=== PATIENT | male | born 1980 | race Caucasian/White ===

== ENCOUNTER 2021-03-18 10:58 | Emergency (ER) | payer OTHER, SELFPAY ==
[2021-03-18 11:08] VITALS: BP 133/77; PULSE 117; RESP 20; TEMP 36.1; O2SAT 99
--- NOTE | 2021-03-18 11:30 | ED.SKABFB ---
HPI - Skin/Abscess/Foreign Bdy General Chief complaint: Skin/Abscess/Foreign Body Stated complaint: pos skin abcess Source: patient and RN notes reviewed Limitations: no limitations History of Present Illness HPI narrative: The patient, previously mostly healthy, presents with skin eruption. Patient states he has a least a week long history of left ,proximal inner thigh abscess. Symptoms are mild to moderate, worse with activity, better with rest and may have worsened in the last couple days after recent float trip. No fever, streaking, scrotal/perineal involvement; there is scant discharge and mild fluctuance Related Data Allergies Allergy/AdvReac Type Severity Reaction Status Date / Time No Known Allergies Allergy Unknown Unverified 03/18/21 11:26 Review of Systems Review of Systems: Narrative: General/Constitutional: No weight loss,fever Eyes: N0: Redness,discharge Ears/Nose/Throat: No: Epistaxis,ear discharge Respiratory: Denies: Hemoptysis Gastrointestinal: No Vomiting, Bleeding-rectal Skin: REPORTS lumps, eruption Neurologic: No Focal Weakness,Sz Hematologic: Denies: Petechiae/Purpura Psychiatric: No: Suicida ideationl All Other Systems: Reviewed and Negative PMFSH Comments At time of signature, agree with nursing past medical, surgical, social and family history. There is no relevant family history pertinent to the presenting complaint Exam Narrative: Exam Narrative: General Appearance: Well nourished, Cooperative, Normocephalic Eye: PERRLA, Conjunctiva clear Ear: External ear normal Nose: Normal nose, Nare clear Mouth/Throat: Normal appearing Neck Exam: Supple Respiratory: Airway patent, No respiratory distress Musculoskeletal: Moves all extremities, Non tender Skin: Warm, Dry; larger, hand-sized area of redness and inflammation centered on a half dollar size abscess of the left proximal inner thigh Neurological: A&O x3, Normal affect Course Vital Signs Vital signs: Vital Signs Temperature 96.9 F L 03/18/21 11:08 Pulse Rate 117 H 03/18/21 11:08 Respiratory Rate 03/18/21 11:08 Blood Pressure 133/77 03/18/21 11:08 Pulse Oximetry 99 03/18/21 11:08 Temperature 96.9 F L 03/18/21 11:08 Pulse Rate 117 H 03/18/21 11:08 Respiratory Rate 03/18/21 11:08 Blood Pressure 133/77 03/18/21 11:08 Pulse Oximetry 99 03/18/21 11:08 Procedures Abscess I/D lower extremity: Date of Incision: 03/18/21 Side (if applicable): left Local Anesthetic: other anesthetic (EMLA) Technique: incised with #11 blade Irrigation: No Packing used?: none I&D Results: Blood Discharge Plan Discharge Clinical Impression: Abscess of skin or subcutaneous tissue Qualifiers: Site of cutaneous abscess: extremity Site of cutaneous abscess of extremity: lower extremity Laterality: left Qualified Code(s): L02.416 - Cutaneous abscess of left lower limb Patient Disposition: Home, Self-Care Condition: Stable Instructions: Antibiotic Form, Abscess (ED) Additional Instructions: Take clindamycin with food, antiacid and/or probiotic; stop if diarrhea occurs Go to hospital if worsens Prescriptions: New clindamycin HCl 300 mg capsule 300 mg PO TID Qty: 21 RF: 0 mupirocin 2 % ointment 1 applic TOPICAL TID Qty: 30 RF: 0 Follow-up/Referrals: UNKNOWN,DOCTOR [Primary Care Provider] -
[2021-03-18] MEDS: LIDOCAINE/PRILOCAINE CREAM 2.5-2.5% TUBE 1 EACH TOPICAL (11:39)
[2021-03-18] MEDS: cefTRIAXone 1 GM VIAL 0.5 GM IM (12:19)
== END 2021-03-18 13:00 | disposition home or self-care (01) ==
PROVIDERS: Emergency Provider Emergency Medicine
DX: L02.416 Cutaneous abscess of left lower limb (principal)
CPT/HCPCS: 10060; 96372; 99213; G0463; J0696